=== PATIENT | female | born 1945 | race Caucasian/White ===

== ENCOUNTER 2025-03-26 12:30 | Outpatient (RCR) | payer MEDICARE, SELFPAY ==
--- NOTE | 2025-03-14 15:21 | PTOPEVAL1 ---
Assessment and note entered by Neda Adamson, PT Evaluation Information Assessment Status Evaluation Diagnosis Dizziness and Giddiness ICD-10 Condition Codes (PT) Dizziness and Giddiness R42,BPPV right ear H81.11 Subjective Information Dizziness comes and goes, never debilitating. Will come and go for multiple years at a time and started last week again. Laying down will swirl then go away and some wiht going to sit up. No symptoms of N/V, off balance sensation Reported Pain Level Pain Score 0: Self Report Assessment PT Clinical Summary Pt presents with dizziness that is on and off over the years, usually lasting a few days then resolves. Today with evaluation, has minor nystagmus in right torsional pattern and greatest symptoms with R Chrissy-Hallpike testing. Pt describes spinning/dizziness sensation as being located at the base of skull which may indicate a cervical factor in her dizziness. Pt will benefit from physical therapy in order to address dizziness, monitor progress with cancer genetic counselor and assess necessity of addition of cervical plan for completion of goals . Plan of Care Interventions Electrical Stimulation,Hot Pack/Cold Pack,Manual Therapy,Neuro Re-education,Patient/Caregiver Education,Therapeutic Activities,Therapeutic Exercise,Self-Care/Home Management PT Services Indicated Yes Treatment Frequency and 2x weekly x 10 visits Duration These treatments will address the objective and functional deficits as defined above. The patient will be advanced safely and appropriately in order for the patient to progress towards his/her prior level of function. Additional exercises will be introduced and as well as a comprehensive home exercise program upon discharge, if needed, ?to ensure carryover of functional gains achieved in the clinic. This treatment plan has been reviewed and agreement upon by the patient.
--- NOTE | 2025-03-14 15:22 | OPREHPOC ---
Outpatient Therapy Plan of Care This is a Multidisciplinary Plan of Care that may contain components documented by all disciplines (PT, OT, and ST.) PT Goal 1 Goal / Goal Update Pt will be independent in HEP Pt will verbalize understanding of diagnosis and prognosis Target Visit 10 PT Problem 2 PT Problem #2 Impaired Sensation PT Goal 1 Goal / Goal Update Pt will report no symptoms with Chrissy-Hallpike testing Target Visit 10 PT Goal 2 Goal / Goal Update Pt will report resolution of symptoms with sit<> supine activities at home. Target Visit 10
--- NOTE | 2025-03-26 12:50 | PTOPDC ---
Assessment and note entered by Neda Adamson, PT Evaluation Information Assessment Status Discharge Diagnosis Dizziness and Giddiness ICD-10 Condition Codes (PT) Dizziness and Giddiness R42,BPPV right ear H81.11 Subjective Information Reports resolution of symptoms. Reported Pain Level Pain Score 0: Self Report Assessment PT Clinical Summary Pt attended 4 therapy sessions and had immediate improvement. She was retested today for latent canalithiasis or cupulolithiasis with negative testing. Pt has been educated on when to return to therapy in the future should she have need of assessment. Thus patient is being discharged for resolution of symptoms and completion of POC. Plan of Care PT Services Indicated No
== END 2025-03-26 13:12 | disposition home or self-care (01) ==
LOC: ANHHIPT 12:30
PROVIDERS: PCP Physician Assistant Medical; Visit Provider Physician Assistant Medical
DX: H81.11 Benign paroxysmal vertigo, right ear (principal)
CPT/HCPCS: 95992; 97110; 97161; 97750